=== PATIENT | male | born 1940 | race Caucasian/White ===

== ENCOUNTER 2020-01-08 08:16 | Outpatient (CLI) | payer MEDICARE, OTHER ==
[2020-01-08 15:32] LABS: BASOPHILS % (AUTO) 0.6 %; EOSINOPHILS # (AUTO) 0.1 10^3/uL (0.0-0.7); EOSINOPHILS % (AUTO) 1.9 %; HGB - HEMOGLOBIN 15.6 g/dL (14.0-18.0); LYMPHOCYTES # (AUTO) 0.6 10^3/uL (1.5-3.5); LYMPHOCYTES % (AUTO) 20.2 %; MEAN CORPUSCULAR HEMOGLOBIN 29.5 pg (27.0-31.0); MEAN CORPUSCULAR VOLUME 89.4 fL (80.0-94.0); MEAN PLATELET VOLUME 9.3 fL (7.4-11.4); MONOCYTES # (AUTO) 0.3 10^3/uL (0.0-1.0); MONOCYTES % (AUTO) 10.4 %; NEUTROPHILS # (AUTO) 2.1 10^3/uL (1.5-6.6); NEUTROPHILS % (AUTO) 66.6 %; PLT - PLATELET COUNT 197 10^3/uL (130-450); RED BLOOD COUNT 5.29 10^6/uL (4.70-6.10); RED CELL DISTRIBUTION WIDTH 13.7 % (12.0-15.0); WHITE BLOOD COUNT 3.2 x10^3/uL (4.8-10.8)
[2020-01-08 15:42] LABS: PSA TOTAL 2.304 ng/mL (0.000-2.000)
[2020-01-08 17:18] LABS: PSA FREE 0.871 ng/mL (0.16-2.81)
[2020-01-11 12:39] LABS: HOMOCYSTEINE 8.9 umol/L (<11.4)
[2020-01-11 21:29] LABS: HDL LARGE 6295 nmol/L (>6729); LDL PARTICLE NUMBER 1209 nmol/L (<1138); LDL PATTERN A Pattern (A); LDL PEAK SIZE 220.7 Angstrom (>222.9); LDL SMALL 170 nmol/L (<142)
== END 2020-01-08 08:17 | disposition home or self-care (01) ==
LOC: LAB.S 08:16
PROVIDERS: ATTEND Registered Nurse
DX: D72.819 Decreased white blood cell count, unspecified (principal); Z13.6 Encounter for screening for cardiovascular disorders; E78.5 Hyperlipidemia, unspecified; N40.0 Benign prostatic hyperplasia without lower urinary tract symptoms
CPT/HCPCS: 36415; 80061; 81599; 83090; 83704; 84153; 84154; 85025; 85651; 86140

== ENCOUNTER 2020-06-08 08:26 | Outpatient (CLI) | payer MEDICARE, OTHER ==
[2020-06-08 15:44] LABS: BASOPHILS % (AUTO) 0.9 %; EOSINOPHILS # (AUTO) 0.1 10^3/uL (0.0-0.7); EOSINOPHILS % (AUTO) 1.6 %; HGB - HEMOGLOBIN 16.3 g/dL (14.0-18.0); LYMPHOCYTES # (AUTO) 0.8 10^3/uL (1.5-3.5); LYMPHOCYTES % (AUTO) 17.4 %; MEAN CORPUSCULAR HEMOGLOBIN 29.9 pg (27.0-31.0); MEAN CORPUSCULAR HGB CONC 33.1 g/dL (32.0-36.0); MEAN CORPUSCULAR VOLUME 90.3 fL (80.0-94.0); MEAN PLATELET VOLUME 9.4 fL (7.4-11.4); MONOCYTES # (AUTO) 0.4 10^3/uL (0.0-1.0); NEUTROPHILS # (AUTO) 3.1 10^3/uL (1.5-6.6); NEUTROPHILS % (AUTO) 71.9 %; PLT - PLATELET COUNT 214 10^3/uL (130-450); RED BLOOD COUNT 5.46 10^6/uL (4.70-6.10); RED CELL DISTRIBUTION WIDTH 13.7 % (12.0-15.0); WHITE BLOOD COUNT 4.4 x10^3/uL (4.8-10.8)
[2020-06-09 07:47] LABS: ESTRADIOL 33 pg/mL (< OR = 39); PROGESTERONE <0.5 ng/mL (<1.4)
[2020-06-10 16:36] LABS: DHEA SULFATE 149 mcg/dL (5-253)
== END 2020-06-08 08:27 | disposition home or self-care (01) ==
LOC: LAB.S 08:26
PROVIDERS: ATTEND Registered Nurse
DX: E29.1 Testicular hypofunction (principal); D72.819 Decreased white blood cell count, unspecified; E55.9 Vitamin D deficiency, unspecified
CPT/HCPCS: 36415; 82306; 82607; 82627; 82670; 82679; 82746; 84144; 84270; 84402; 84403; 85025

== ENCOUNTER 2021-01-19 07:51 | Outpatient (CLI) | payer MEDICARE, OTHER ==
[2021-01-19 14:47] LABS: BASOPHILS % (AUTO) 0.4 %; EOSINOPHILS % (AUTO) 0.8 %; HCT - HEMATOCRIT 45.1 % (42.0-52.0); HGB - HEMOGLOBIN 14.7 g/dL (14.0-18.0); LYMPHOCYTES # (AUTO) 0.5 10^3/uL (1.5-3.5); LYMPHOCYTES % (AUTO) 9.9 %; MEAN CORPUSCULAR HEMOGLOBIN 29.9 pg (27.0-31.0); MEAN CORPUSCULAR HGB CONC 32.6 g/dL (32.0-36.0); MEAN CORPUSCULAR VOLUME 91.7 fL (80.0-94.0); MEAN PLATELET VOLUME 9.2 fL (7.4-11.4); MONOCYTES # (AUTO) 0.5 10^3/uL (0.0-1.0); MONOCYTES % (AUTO) 8.7 %; NEUTROPHILS # (AUTO) 4.1 10^3/uL (1.5-6.6); PLT - PLATELET COUNT 222 10^3/uL (130-450); RED BLOOD COUNT 4.92 10^6/uL (4.70-6.10); RED CELL DISTRIBUTION WIDTH 13.5 % (12.0-15.0); WHITE BLOOD COUNT 5.2 x10^3/uL (4.8-10.8)
[2021-01-19 15:09] LABS: PSA FREE 0.952 ng/mL (0.16-2.81)
[2021-01-19 15:10] LABS: PSA TOTAL 1.816 ng/mL (0.000-2.000)
[2021-01-19 15:14] LABS: ALBUMIN 4.3 g/dL (3.2-5.5); ALBUMIN/GLOBULIN RATIO 1.5 (1.0-2.2); ALKALINE PHOSPHATASE 46 IU/L (42-121); ALT ALANINE AMINOTRANSFERASE 21 IU/L (10-60); AST ASPARTATE AMINOTRANSFERASE 18 IU/L (10-42); BILIRUBIN,TOTAL 0.9 mg/dL (0.2-1.0); BUN - BLOOD UREA NITROGEN 14 mg/dL (6-20); CARBON DIOXIDE - CO2 28 mmol/L (21-32); CHLORIDE 99 mmol/L (101-111); CREATININE 0.9 mg/dL (0.6-1.2); GFR - MDRD 82 (>89); GLUCOSE 92 mg/dL (70-100); SODIUM 136 mmol/L (135-145); TOTAL PROTEIN 7.2 g/dL (6.7-8.2)
[2021-01-19 15:51] LABS: CRP - C-REACTIVE PROTEIN < 1.0 mg/dL (0-1.0)
[2021-01-23 15:22] LABS: HDL LARGE 6567 nmol/L (>6729); LDL MEDIUM 296 nmol/L (<215); LDL PARTICLE NUMBER 1306 nmol/L (<1138); LDL PATTERN A Pattern (A); LDL PEAK SIZE 218.7 Angstrom (>222.9); LDL SMALL 211 nmol/L (<142)
== END 2021-01-19 07:52 | disposition home or self-care (01) ==
LOC: LAB.S 07:51
PROVIDERS: ATTEND Registered Nurse
DX: N40.0 Benign prostatic hyperplasia without lower urinary tract symptoms (principal); E29.1 Testicular hypofunction; D72.819 Decreased white blood cell count, unspecified; E78.49 Other hyperlipidemia; E55.9 Vitamin D deficiency, unspecified; R79.82 Elevated C-reactive protein (CRP)
CPT/HCPCS: 36415; 80053; 80061; 81599; 82306; 83704; 84153; 84154; 84402; 84403; 85025; 86140

== ENCOUNTER 2021-02-17 09:29 | Outpatient (CLI) | payer MEDICARE, OTHER | END 2021-02-17 09:30 | disposition home or self-care (01) | LOC: LAB.S 09:29 | PROVIDERS: ATTEND Registered Nurse | DX: E29.1 Testicular hypofunction (principal) | CPT/HCPCS: 36415; 81599; 84402; 84403 ==

== ENCOUNTER 2021-05-09 07:49 | Day surgery (SDC) | payer MEDICARE, OTHER ==
[2021-05-09] MEDS ORDERED: LACTATED RINGERS 1,000 ML IV ONE (07:54)
--- NOTE | 2021-05-09 08:56 | ANESTHESIA ---
Pre-Anesthesia VS, & Labs - Diagnosis history of colon polyps - Procedure colonoscopy Vital Signs: Temp Pulse Resp BP Pulse Ox 36.5 C 73 18 141/81 H 99 05/09/21 07:57 05/09/21 07:57 05/09/21 07:57 05/09/21 07:57 05/09/21 07:57 Height: 5 ft 8 in Weight (kg): 73.5 kg Body Mass Index: 24.6 BMI Classification: Healthy weight - NPO >8 hours Home Medications and Allergies Home Medications: Ambulatory Orders Finasteride [Proscar] 5 mg PO DAILY 05/08/21 Testosterone 3 ml TOP DAILY 10/13/15 Finasteride [Proscar] 5 mg PO DAILY 05/08/21 Allergies/Adverse Reactions: Allergies Allergy/AdvReac Type Severity Reaction Status Date / Time No Known Drug Allergies Allergy Verified 10/12/15 13:50 Anes History & Medical History - Anesthetic History Anesthesia Complications: reports: No previous complications - Medical History Cardiovascular: reports: None Pulmonary: reports: Sleep apnea (uses an appliance) Gastrointestinal: reports: Colon polyps Urinary: reports: Benign prostate hypertrophy Neuro: reports: None Musculoskeletal: reports: Osteoarthritis Endocrine/Autoimmune: reports: None Blood Disorders: reports: None Skin: reports: None Smoking Status: Never smoker Psychosocial: reports: No issues indicated History of Cancer?: No - Surgical History General: reports: Colonoscopy Orthopedic: reports: Other Exam General: Alert, Oriented x3, Cooperative, No acute distress Dental: WNL Mouth Openin Fingerbreadth Neck Mobility: Normal Mallampati classification: IV Thyromental Distance: 4-6 cm Mental/Cognitive Status: Alert/Oriented X3, Normal for patient Plan Anesthesia Type: Other (patient requests no anesthesia service. Will be available if needed for total IV anesthesia.) Consent for Procedure(s) Verified and Reviewed: Yes Code Status: Attempt Resuscitation ASA classification: 2-Mild systemic disease Is this case an emergency?: No
[2021-05-09] MEDS ORDERED: LACTATED RINGERS 700 ML IV ONE (09:41)
[2021-05-09 09:54] VITALS: BP 131/67
== END 2021-05-09 07:50 | disposition home or self-care (01) ==
LOC: SDS 07:49
PROVIDERS: ATTEND Surgery
DX: Z12.11 Encounter for screening for malignant neoplasm of colon (principal); Z86.010 Personal history of colon polyps; G47.30 Sleep apnea, unspecified; N40.0 Benign prostatic hyperplasia without lower urinary tract symptoms; D72.810 Lymphocytopenia
CPT/HCPCS: 36415; 85025; G0105; J7120

== ENCOUNTER 2021-05-09 11:33 | Outpatient (CLI) | payer MEDICARE, OTHER ==
[2021-05-09 14:19] LABS: BASOPHILS % (AUTO) 0.3 %; EOSINOPHILS % (AUTO) 0.8 %; HCT - HEMATOCRIT 44.2 % (42.0-52.0); HGB - HEMOGLOBIN 14.7 g/dL (14.0-18.0); LYMPHOCYTES # (AUTO) 0.4 10^3/uL (1.5-3.5); LYMPHOCYTES % (AUTO) 11.8 %; MEAN CORPUSCULAR HEMOGLOBIN 29.8 pg (27.0-31.0); MEAN CORPUSCULAR HGB CONC 33.3 g/dL (32.0-36.0); MEAN CORPUSCULAR VOLUME 89.5 fL (80.0-94.0); MONOCYTES # (AUTO) 0.3 10^3/uL (0.0-1.0); MONOCYTES % (AUTO) 7.5 %; NEUTROPHILS % (AUTO) 79.3 %; PLT - PLATELET COUNT 236 10^3/uL (130-450); RED BLOOD COUNT 4.94 10^6/uL (4.70-6.10); RED CELL DISTRIBUTION WIDTH 13.2 % (12.0-15.0); WHITE BLOOD COUNT 3.7 x10^3/uL (4.8-10.8)
== END 2021-05-09 11:34 | disposition home or self-care (01) ==
LOC: LAB.S 11:33
PROVIDERS: ATTEND Registered Nurse
DX: D72.810 Lymphocytopenia (principal)
CPT/HCPCS: 36415; 85025

== ENCOUNTER 2021-05-22 10:29 | Outpatient (CLI) | payer MEDICARE, OTHER ==
[2021-05-22 15:02] LABS: BASOPHILS % (AUTO) 0.4 %; EOSINOPHILS % (AUTO) 0.9 %; HCT - HEMATOCRIT 46.9 % (42.0-52.0); LYMPHOCYTES % (AUTO) 11.8 %; MEAN CORPUSCULAR HEMOGLOBIN 29.3 pg (27.0-31.0); MEAN CORPUSCULAR VOLUME 91.6 fL (80.0-94.0); MEAN PLATELET VOLUME 9.1 fL (7.4-11.4); MONOCYTES % (AUTO) 8.4 %; NEUTROPHILS % (AUTO) 78.3 %; PLT - PLATELET COUNT 232 10^3/uL (130-450); RED BLOOD COUNT 5.12 10^6/uL (4.70-6.10); RED CELL DISTRIBUTION WIDTH 13.3 % (12.0-15.0); WHITE BLOOD COUNT 5.3 x10^3/uL (4.8-10.8)
[2021-05-22 15:06] LABS: ABNORMAL LYMPHS % (MANUAL) 0 %; BAND NEUTROPHILS % (MANUAL) 0 %
[2021-05-22 16:00] LABS: BASOPHILS # (MANUAL) 0.1 10^3/uL (0-0.1); BASOPHILS % (MANUAL) 1 %; EOSINOPHILS # (MANUAL) 0.2 10^3/uL (0-0.7); LYMPHOCYTES # (MANUAL) 0.8 10^3/uL (1.5-3.5); LYMPHOCYTES % (MANUAL) 16 %; MONOCYTES # (MANUAL) 0.4 10^3/uL (0.0-1.0); NEUTROPHILS # (MANUAL) 3.9 10^3/uL (1.5-6.6); PLATELET ESTIMATE, MANUAL NORMAL (130-450,000) (NORMAL); PLATELET MORPHOLOGY NORMAL APPEARANCE (NORMAL); RBC MORPHOLOGY (MULTIPLE) NORMAL APPEARANCE (NORMAL)
[2021-05-22 16:01] LABS: DIFFERENTIAL COMMENT MANUAL DIFFERENTIAL; WBC MORPHOLOGY (MULTIPLE) NORMAL APPEARANCE (NORMAL)
== END 2021-05-22 10:30 | disposition home or self-care (01) ==
LOC: LAB.S 10:29
PROVIDERS: ATTEND Registered Nurse
DX: D72.810 Lymphocytopenia (principal)
CPT/HCPCS: 36415; 85025; 87389

== ENCOUNTER 2021-09-07 11:43 | Outpatient (CLI) | payer MEDICARE, OTHER ==
[2021-09-07 15:17] LABS: PSA FREE 0.99 ng/mL (0.16-2.81)
[2021-09-07 15:18] LABS: PSA TOTAL 2.43 ng/mL (0.000-2.000)
[2021-09-08 03:32] LABS: ESTRADIOL 31 pg/mL (< OR = 39)
[2021-09-09 00:11] LABS: DHEA SULFATE 490 mcg/dL (3-225)
== END 2021-09-07 11:44 | disposition home or self-care (01) ==
LOC: LAB.S 11:43
DX: E34.9 Endocrine disorder, unspecified (principal); N40.0 Benign prostatic hyperplasia without lower urinary tract symptoms; D75.1 Secondary polycythemia
CPT/HCPCS: 36415; 81599; 82627; 82670; 83036; 83090; 84153; 84154; 84270; 84402; 84403; 86141

== ENCOUNTER 2021-09-18 12:15 | Outpatient (CLI) | payer MEDICARE, OTHER ==
[2021-09-18 14:55] LABS: BASOPHILS % (AUTO) 0.7 %; EOSINOPHILS % (AUTO) 0.9 %; HCT - HEMATOCRIT 44.4 % (42.0-52.0); HGB - HEMOGLOBIN 14.9 g/dL (14.0-18.0); LYMPHOCYTES # (AUTO) 0.7 10^3/uL (1.5-3.5); LYMPHOCYTES % (AUTO) 14.7 %; MEAN CORPUSCULAR HEMOGLOBIN 29.9 pg (27.0-31.0); MEAN CORPUSCULAR HGB CONC 33.6 g/dL (32.0-36.0); MEAN CORPUSCULAR VOLUME 89.2 fL (80.0-94.0); MEAN PLATELET VOLUME 9.1 fL (7.4-11.4); MONOCYTES # (AUTO) 0.4 10^3/uL (0.0-1.0); MONOCYTES % (AUTO) 8.3 %; NEUTROPHILS # (AUTO) 3.4 10^3/uL (1.5-6.6); PLT - PLATELET COUNT 211 10^3/uL (130-450); RED BLOOD COUNT 4.98 10^6/uL (4.70-6.10); RED CELL DISTRIBUTION WIDTH 13.1 % (12.0-15.0); WHITE BLOOD COUNT 4.6 x10^3/uL (4.8-10.8)
[2021-09-18 16:40] LABS: ESTIMATED AVERAGE GLUCOSE 103 mg/dL (70-100); HEMOGLOBIN A1c% 5.2 % (4.27-6.07)
== END 2021-09-18 12:16 | disposition home or self-care (01) ==
LOC: LAB.S 12:15
PROVIDERS: ATTEND Registered Nurse
DX: D72.810 Lymphocytopenia (principal); Z13.228 Encounter for screening for other metabolic disorders
CPT/HCPCS: 36415; 83036; 85025

== ENCOUNTER 2023-01-07 13:29 | Outpatient (CLI) | payer MEDICARE, OTHER ==
[2023-01-07 20:57] LABS: BASOPHILS % (AUTO) 0.7 %; EOSINOPHILS % (AUTO) 0.9 %; HCT - HEMATOCRIT 44.7 % (42.0-52.0); LYMPHOCYTES # (AUTO) 0.8 10^3/uL (1.5-3.5); LYMPHOCYTES % (AUTO) 17.8 %; MEAN CORPUSCULAR HEMOGLOBIN 28.8 pg (27.0-31.0); MEAN CORPUSCULAR HGB CONC 33.6 g/dL (32.0-36.0); MEAN CORPUSCULAR VOLUME 85.8 fL (80.0-94.0); MEAN PLATELET VOLUME 9.2 fL (7.4-11.4); MONOCYTES # (AUTO) 0.3 10^3/uL (0.0-1.0); MONOCYTES % (AUTO) 7.6 %; NEUTROPHILS # (AUTO) 3.1 10^3/uL (1.5-6.6); NEUTROPHILS % (AUTO) 72.8 %; PLT - PLATELET COUNT 233 10^3/uL (130-450); RED BLOOD COUNT 5.21 10^6/uL (4.70-6.10); RED CELL DISTRIBUTION WIDTH 14.7 % (12.0-15.0); WHITE BLOOD COUNT 4.2 x10^3/uL (4.8-10.8)
[2023-01-07 21:12] LABS: ALBUMIN/GLOBULIN RATIO 1.3 (1.0-2.2); BILIRUBIN,TOTAL 0.5 mg/dL (0.2-1.0); CALCIUM 8.8 mg/dL (8.5-10.3); CREATININE 1.1 mg/dL (0.6-1.2); POTASSIUM 4.4 mmol/L (3.5-5.0); TOTAL PROTEIN 7.1 g/dL (6.7-8.2)
[2023-01-07 21:23] LABS: PSA FREE 1.066 ng/mL (0.16-2.81)
[2023-01-07 21:24] LABS: PSA TOTAL 2.222 ng/mL (0.000-2.000)
[2023-01-09 07:10] LABS: PROGESTERONE 0.3 ng/mL (0.0-0.5)
[2023-01-09 22:07] LABS: FREE TESTOSTERONE(DIRECT) 11.1 pg/mL (6.6-18.1); SEX HORM BINDING GLOB SERUM 24.6 nmol/L (19.3-76.4)
[2023-01-10 09:10] LABS: HDL-P (TOTAL) 37.4 umol/L (>=30.5); LDL SIZE 21.4 nm (>20.5); LDL-P 1118 nmol/L (<1000); LP-INSULIN RESISTANCE SCORE 44 (<=45); SMALL LDL-P 507 nmol/L (<=527)
== END 2023-01-07 13:30 | disposition home or self-care (01) ==
LOC: LAB.S 13:29
PROVIDERS: ATTEND Registered Nurse
DX: E78.5 Hyperlipidemia, unspecified (principal); E34.9 Endocrine disorder, unspecified; D72.810 Lymphocytopenia; N40.0 Benign prostatic hyperplasia without lower urinary tract symptoms
CPT/HCPCS: 36415; 80053; 81599; 82626; 82670; 82672; 82679; 83704; 84144; 84153; 84154; 84270; 84402; 84403; 85025

== ENCOUNTER 2023-01-25 12:51 | Outpatient (CLI) | payer MEDICARE, OTHER ==
[2023-01-25 20:23] LABS: PSA FREE 0.997 ng/mL (0.16-2.81)
[2023-01-25 20:24] LABS: PSA TOTAL 2.085 ng/mL (0.000-2.000)
== END 2023-01-25 12:52 | disposition home or self-care (01) ==
LOC: LAB.S 12:51
PROVIDERS: ATTEND Naturopath
DX: N40.1 Benign prostatic hyperplasia with lower urinary tract symptoms (principal); E34.9 Endocrine disorder, unspecified; N18.9 Chronic kidney disease, unspecified; D72.810 Lymphocytopenia
CPT/HCPCS: 36415; 84153; 84154

== ENCOUNTER 2024-03-13 07:12 | Outpatient (CLI) | payer MEDICARE, OTHER ==
[2024-03-13 15:20] LABS: BASOPHILS % (AUTO) 0.8 %; EOSINOPHILS # (AUTO) 0.1 10^3/uL (0.0-0.7); EOSINOPHILS % (AUTO) 2.2 %; HCT - HEMATOCRIT 45.9 % (42.0-52.0); HGB - HEMOGLOBIN 14.7 g/dL (14.0-18.0); LYMPHOCYTES # (AUTO) 0.6 10^3/uL (1.5-3.5); LYMPHOCYTES % (AUTO) 17.1 %; MEAN CORPUSCULAR HEMOGLOBIN 28.7 pg (27.0-31.0); MEAN CORPUSCULAR VOLUME 89.5 fL (80.0-94.0); MEAN PLATELET VOLUME 9.6 fL (7.4-11.4); MONOCYTES # (AUTO) 0.3 10^3/uL (0.0-1.0); MONOCYTES % (AUTO) 8.9 %; NEUTROPHILS # (AUTO) 2.6 10^3/uL (1.5-6.6); PLT - PLATELET COUNT 237 10^3/uL (130-450); RED BLOOD COUNT 5.13 10^6/uL (4.70-6.10); RED CELL DISTRIBUTION WIDTH 14.7 % (12.0-15.0); WHITE BLOOD COUNT 3.7 x10^3/uL (4.8-10.8)
[2024-03-14 08:10] LABS: ESTRADIOL 48.6 pg/mL (7.6-42.6); PROGESTERONE 0.1 ng/mL (0.0-0.5)
== END 2024-03-13 07:13 | disposition home or self-care (01) ==
LOC: LAB.S 07:12
PROVIDERS: ATTEND Naturopath
DX: E34.9 Endocrine disorder, unspecified (principal); R60.0 Localized edema; N18.9 Chronic kidney disease, unspecified; D72.810 Lymphocytopenia; N40.1 Benign prostatic hyperplasia with lower urinary tract symptoms
CPT/HCPCS: 36415; 82627; 82670; 82679; 84144; 84153; 84154; 84270; 84402; 84403; 85025

== ENCOUNTER 2024-03-25 07:09 | Outpatient (CLI) | payer MEDICARE, OTHER ==
[2024-03-25 14:42] LABS: BASOPHILS % (AUTO) 0.5 %; EOSINOPHILS # (AUTO) 0.1 10^3/uL (0.0-0.7); HCT - HEMATOCRIT 46.2 % (42.0-52.0); HGB - HEMOGLOBIN 14.9 g/dL (14.0-18.0); LYMPHOCYTES # (AUTO) 0.7 10^3/uL (1.5-3.5); LYMPHOCYTES % (AUTO) 18.2 %; MEAN CORPUSCULAR HEMOGLOBIN 28.9 pg (27.0-31.0); MEAN CORPUSCULAR HGB CONC 32.3 g/dL (32.0-36.0); MEAN CORPUSCULAR VOLUME 89.7 fL (80.0-94.0); MEAN PLATELET VOLUME 9.2 fL (7.4-11.4); MONOCYTES # (AUTO) 0.4 10^3/uL (0.0-1.0); NEUTROPHILS # (AUTO) 2.8 10^3/uL (1.5-6.6); NEUTROPHILS % (AUTO) 70.1 %; PLT - PLATELET COUNT 226 10^3/uL (130-450); RED BLOOD COUNT 5.15 10^6/uL (4.70-6.10); RED CELL DISTRIBUTION WIDTH 14.4 % (12.0-15.0)
== END 2024-03-25 07:10 | disposition home or self-care (01) ==
LOC: LAB.S 07:09
PROVIDERS: ATTEND Naturopath
DX: E34.9 Endocrine disorder, unspecified (principal); R60.0 Localized edema; N18.9 Chronic kidney disease, unspecified; D72.810 Lymphocytopenia; N40.0 Benign prostatic hyperplasia without lower urinary tract symptoms
CPT/HCPCS: 36415; 84153; 84154; 85025